=== PATIENT | female | born 1955 | race Two or more races ===

== ENCOUNTER → 2017-08-05 | Outpatient (CLI) | payer OTHER | END | disposition home or self-care (01) | LOC: Rad HDHVI 14:47 | PROVIDERS: ATTEND Internal Medicine Cardiovascular Disease | DX: I20.9 Angina pectoris, unspecified (principal); R06.02 Shortness of breath | CPT/HCPCS: 93306 ==

== ENCOUNTER 2024-08-12 14:25 | Outpatient (CLI) | payer MEDICARE ==
[~2024-08-12 14:25] MED LIST: CARI-579 PO; DULO1CAP6 PO; LEVO100T8 PO; TRAM50TA2 PO; TRAZ1TAB12 PO
== END 2024-08-12 17:00 | disposition home or self-care (01) ==
LOC: Rad HDHVI 14:25
PROVIDERS: ATTEND Internal Medicine Cardiovascular Disease
DX: I11.9 Hypertensive heart disease without heart failure (principal)
CPT/HCPCS: 93306

== ENCOUNTER 2025-01-25 07:58 | Outpatient (CLI) | payer MEDICARE ==
[~2025-01-25] VITALS: Ht 172.7 cm; Wt 72.6 kg
[2025-01-25] MEDS ORDERED: ADENOSINE 61 MG in GIVE UN-DILUTED 0 ML IV ONE (09:00)
[2025-01-25] MEDS ORDERED: ADENOSINE 90 MG/30 ML INJ IV ONE (09:11)
== END 2025-01-25 17:00 | disposition home or self-care (01) ==
LOC: Rad HDHVI 07:58
PROVIDERS: ATTEND Internal Medicine Cardiovascular Disease
DX: I44.0 Atrioventricular block, first degree (principal); R00.1 Bradycardia, unspecified; I25.10 Atherosclerotic heart disease of native coronary artery without angina pectoris; I48.91 Unspecified atrial fibrillation; I34.1 Nonrheumatic mitral (valve) prolapse; R07.89 Other chest pain; R00.2 Palpitations; E78.00 Pure hypercholesterolemia, unspecified
CPT/HCPCS: 78452; 93017; A9500; J0153